=== PATIENT | male | born 1980 | race Caucasian/White ===

== ENCOUNTER 2019-03-29 05:04 | Day surgery (SDC) | payer OTHER ==
[~2019-03-29] VITALS: Ht 175.3 cm; Wt 93.6 kg
[2019-03-29] MEDS ORDERED: COLACE100 MG PO (06:46)
[2019-03-29] MEDS ORDERED: ACETAMINOPHEN500 M1 PO (06:46)
[2019-03-29 06:55] VITALS: BP 125/88; Ht 175.3 cm; Wt 93.6 kg
--- NOTE | 2019-03-29 12:34 | NUR ---
1 GRAM OF VANCOMYCI IN 250CC OF NORMAL SALINE INFUSING ON ADMIT
--- NOTE | 2019-03-29 13:00 | NUR ---
REC'D FROM [facility] ACCOMPANIED BY [facility] OFFICER. DRESSING CDI TO RIGHT GROIN. FL TRAY BROUGHT TO PT.
--- NOTE | 2019-03-29 13:30 | NUR ---
TOLERATED FL DIET. NO URGE TO VOID AT THIS TIME.
--- NOTE | 2019-03-29 14:15 | NUR ---
AMBULATED TO BATHROOM AND VOIDED WITHOUT DIFFICULTY.
--- NOTE | 2019-03-29 14:45 | NUR ---
WRITTEN AND VERBAL DC INST. GIVEN TO [facility] OFFICERS ALONG WITH RX. VERBALIZED UNDERSTANDING.
--- NOTE | 2019-03-29 14:50 | NUR ---
DC'D TO [facility] FACILITY VIA FACILITY VEHICLE. STABLE AT TIME OF DC.
--- NOTE | 2019-04-15 12:52 | OP ---
PATIENT NAME: VANDANA WHEATLEY MEDICAL RECORD: [id number] :76 [facility] ADMISS[facility] DATE: SURGEON: FREDDY JOSEPH MD DATE OF OPERATION: 03/29/2019 PRINCIPAL DIAGNOSIS: Symptomatic right inguinal hernia. POSTOPERATIVE DIAGNOSIS: Symptomatic right inguinal hernia. PROCEDURES: Open right indirect inguinal hernia repair with bilayered preperitoneal polypropylene mesh. SURGEON: Freddy Joseph MD SENIOR ACCOUNTS PAYABLE SPECIALIST: None. BLOOD LOSS: Minimal. ANESTHESIA: General. COMPLICATIONS: None. The risks, possible complications, and alternatives to the procedure were explained to the patient. He elects to proceed. The discussion specifically included, but was not limited to, bleeding requiring emergency reoperation, infection, re-herniation, chronic pain. I specifically told the patient that mesh would be used in his repair. I told him that without utilizing mesh, the recurrence rate was going to be almost 100%. OPERATIVE COURSE: The patient was conveyed to the operating room electively on 03/29/2019. General anesthesia was induced by the anesthesia staff. The abdomen and genitals were sterilely prepped and draped. A transverse incision was accomplished in the right groin. Sharp dissection was carried down through skin and subcutaneous tissue as well as Natalia fascia. The external oblique aponeurosis was then incised along the direction of its fibers. I bluntly dissected down through the internal oblique and transverse abdominis muscles. I reduced an indirect hernia in its entirety. I opened the hernia sac. I then ligated the sac highly with a pursestring 3-0 Vicryl suture and transected the sac distal to this. There was no direct component. A preperitoneal pocket was fashioned bluntly. I then cut out 2 ovals out of a polypropylene mesh. The 2 ovals were sutured together one on top of the other with a running #1 Surgidac. The mesh was placed in the preperitoneal space. Once I was satisfied with placement of the mesh, I then closed the transverse abdominis and internal oblique muscles with multiple interrupted horizontal mattress 0 Surgidacs incorporating a portion of the mesh with these sutures. The external oblique aponeurosis was closed with running #1 Vicryls. Natalia fascia was approximated with interrupted 3-0 Vicryls. The subdermis was approximated with interrupted 3-0 Vicryls. The skin was approximated with a running intracuticular 3-0 Vicryl. Benzoin and Steri-Strips were applied. The patient was then extubated and conveyed to the post-anesthesia care unit where he was in stable condition. He will be dismissed home on a narcotic analgesic as well as a stool softener. I will see him in the office on a p.r.n. basis. I can see him on rounds. OPERATIVE REPORT [id number] DIONIMINDIO TRANSINT:[id number] Voice Confirmation ID: [id number] DOCUMENT ID: [id number] FREDDY JOSEPH MD at 1252 CC: [id number] DICTATION DATE: 04/15/19 1053 [employer] FRAMES: 04/15/19 1132 [facility] 03/29/19 [id number] [place] [address]
== END 2019-03-29 14:50 | disposition home or self-care (01) ==
LOC: D.OPS 05:04
PROVIDERS: ATTEND Surgery
DX: K40.90 Unilateral inguinal hernia, without obstruction or gangrene, not specified as recurrent (principal); Z01.812 Encounter for preprocedural laboratory examination